=== PATIENT | male | born 1980 | race African-American/Black ===

== ENCOUNTER 2025-03-29 13:21 | Emergency (ER) | payer OTHER ==
[2025-03-29 13:30] VITALS: BP 130/90; PULSE 75; RESP 18; TEMP 98.7
[2025-03-29] MEDS ORDERED: IBUPROFEN 600 MG TABLET (FP) PO ONE (15:28)
[2025-03-29] MEDS: IBUPROFEN 600 MG TABLET (FP) PO ONE (15:47)
[2025-03-29] MEDS ORDERED: BACITRACIN ZINC 15 GM TUBE TOPICAL OINTMENT ONE (16:23)
== END 2025-03-29 16:40 | disposition home or self-care (01) ==
LOC: JERFT 13:21
DX: S63.124A Dislocation of interphalangeal joint of right thumb, initial encounter (principal); S93.402A Sprain of unspecified ligament of left ankle, initial encounter; V29.91XA Electric (assisted) bicycle rider (driver) (passenger) injured in unspecified traffic accident, initial encounter
CPT/HCPCS: 73130-TC-RT-FY; 73140-TC-RT-FY; 73610-TC-LT-FY; 99284-25